=== PATIENT | male | born 1970 | race Caucasian/White ===

== ENCOUNTER 2017-03-18 18:02 | Emergency (ER) | payer MEDICAID, OTHER ==
[2017-03-18 18:36] VITALS: BP 106/69
--- NOTE | 2017-03-18 18:40 | UC ---
Lower Extremity/Ankle HPI - HPI Summary HPI Summary: 47 yo male injured his right ankle yesterday hx of neuropathy on chtonic oxycodone/apap 7.5/325 QID has taken some extra due to severe pain and is about out unable to bear wt - History of Current Complaint Chief Complaint: UCLowerExtremity Stated Complaint: RIGHT ANKLE INJURY Time Seen by Provider: 03/18/17 18:36 Hx Obtained From: Patient Onset/Duration: Sudden Onset, Lasting Hours Severity Initially: Severe Severity Currently: Severe - 10 Pain Intensity: 10 Pain Scale Used: 0-10 Numeric Aggravating Factor(s): Standing, Ambulation Alleviating Factor(s): Nothing Able to Bear Weight: No - Allergies/Home Medications Allergies/Adverse Reactions: Allergies Allergy/AdvReac Type Severity Reaction Status Date / Time No Known Allergies Allergy Verified 03/18/17 18:36 Home Medications: Home Medications FLUoxetine CAP* [PROzac CAP*] 20 mg PO DAILY 03/18/17 [History Confirmed ] Hydrocodone-Acetaminophen [Vicodin 5-300 mg] 1 tab PO DAILY PRN 03/18/17 [ History Confirmed 03/18/17] Omeprazole CAP* [Prilosec CAP* 20 MG] 20 mg PO DAILY 03/18/17 [History Confirmed 03/18/17] PMH/Surg Hx/FS Hx/Imm Hx Previously Healthy: Yes Cardiovascular History: Hypertension - Surgical History Surgical History: Yes Surgery Procedure, Year, and Place: WISDOM TEETH. right elbow ulnar nerve Nov 2015 - Family History Known Family History: Positive: Hypertension - Social History Alcohol Use: Occasionally Alcohol Amount: 1 PER DAY Substance Use Type: None Smoking Status (MU): Never Smoked Tobacco Type: Smokeless Tobacco Amount Used/How Often: CHEWS-1 can q2days Length of Time of Smoking/Using Tobacco: 9 YRS Have You Smoked in the Last Year: No - Immunization History Hx Tetanus, Diphtheria Vaccination: No - unsure will up date today Review of Systems Constitutional: Negative Skin: Negative Eyes: Negative ENT: Negative Respiratory: Negative Cardiovascular: Negative Gastrointestinal: Negative Genitourinary: Negative Motor: Negative Neurovascular: Negative Musculoskeletal: Arthralgia Neurological: Paresthesia, Numbness, Other - right arm due to ulnar nerve injury Psychological: Negative Is Patient Immunocompromised?: No All Other Systems Reviewed And Are Negative: Yes Physical Exam Triage Information Reviewed: Yes Appearance: Well-Appearing, Pain Distress Vital Signs: Initial Vital Signs Temp 97.3 F 03/18/17 18:30 Pulse 64 03/18/17 18:30 Resp 16 03/18/17 18:30 BP 106/69 03/18/17 18:30 Pulse Ox 97 03/18/17 18:30 Vital Signs Reviewed: Yes Eyes: Positive: Conjunctiva Clear ENT: Positive: Hearing grossly normal, Uvula midline. Negative: Nasal congestion, Nasal drainage, Trismus, Hoarse voice, Dental tenderness, Sinus tenderness Neck: Positive: Supple, Nontender Respiratory: Positive: Lungs clear, Normal breath sounds, No respiratory distress Cardiovascular: Positive: RRR, No Murmur Musculoskeletal: Positive: Other: - see image Neurological: Positive: Alert Psychological Exam: Normal Skin Exam: Normal Diagnostics - Radiology No standard instances Xray Interpretation: Positive (See Comments) - AVULSION FX NAVICULAR Radiology Interpretation Completed By: Radiologist Lower Extremity Course/Dx - Differential Dx/Diagnosis Provider Diagnoses: AVULSION FRACTURE OF RIGHT TARSAL NAVICULAR Discharge - Discharge Plan Condition: Stable Disposition: HOME Prescriptions: oxyCODONE/Acetamin 10/325(NF) [Percocet 10/325 (NF)] 1 tab PO QID PRN #10 tab MDD 4 PRN Reason: Pain Promethazine TAB* [Phenergan TAB*] 25 mg PO Q6H PRN #12 tab PRN Reason: Nausea Patient Education Materials: Foot Fracture in Adults (ED) Referrals: Ludwin Zarate MD [Medical Doctor] - 3 Days Additional Instructions: CAM BOOT crutches CALL THE MD WHO MANAGES YOUR PAIN PILLS YOLANDA FURTHER PAIN CONTROL NEEDS TO BE THROUGH THEM YOU NEED TO SEE AN ORTHOPEDIST(DR ZARATE) Images Feet (Multiple View): 1 - tender/swollen 2 - tender/swollen
--- NOTE | 2017-03-18 19:31 | RAD ---
Indication: Right ankle injury. 4 views of the right ankle are reviewed. Ankle mortise is intact. Soft tissue swelling is noted. Bony fragment is noted adjacent to the scaphoid. Possibility of an avulsion should BE considered. IMPRESSION: Soft tissue swelling with suggestion of avulsion fracture off the dorsal aspect of the navicular.
== END 2017-03-18 20:03 | disposition home or self-care (01) ==
LOC: UCCORT 18:02
DX: S99.911A Unspecified injury of right ankle, initial encounter (principal); X58.XXXA Exposure to other specified factors, initial encounter; Y93.9 Activity, unspecified; Y92.9 Unspecified place or not applicable; I10 Essential (primary) hypertension; F17.220 Nicotine dependence, chewing tobacco, uncomplicated
CPT/HCPCS: 99213; G0463